=== PATIENT | male | born 1970 | race Asian ===

== ENCOUNTER → 2020-12-20 | Outpatient (CLI) | payer BC | LOC: EDSEX 08:40 → US 08:40 | PROVIDERS: ATTEND Internal Medicine Gastroenterology | DX: R10.84 Generalized abdominal pain (principal); K92.1 Melena | CPT/HCPCS: 76700 ==

== ENCOUNTER → 2021-01-10 | Day surgery (SDC) | payer BC ==
[~2021-01-10] MED LIST: FENTANYL CITRATE/PF 100MCG/2 ML INJ ONE; GLUCAGON FOR INJ 1 MG VIAL ONE; LIDOCAINE HCL 2% LOCAL INJ 5 ML SDV VIAL INJ ONE; MIDAZOLAM HCL 2 MG/2 ML VIAL ONE; PROPOFOL IV EMULSION 10 MG/ML 20 ML VIAL ONE
[2021-01-10 11:15] VITALS: BP 111/77
== END | disposition home or self-care (01) ==
LOC: EDSEX → OR 08:23
PROVIDERS: ATTEND Internal Medicine Gastroenterology
DX: D12.0 Benign neoplasm of cecum (principal); R03.0 Elevated blood-pressure reading, without diagnosis of hypertension; Z68.25 Body mass index [BMI] 25.0-25.9, adult; Z01.810 Encounter for preprocedural cardiovascular examination; Z01.812 Encounter for preprocedural laboratory examination; Z20.822 Contact with and (suspected) exposure to COVID-19
CPT/HCPCS: 45385; 93005; J1610; J2001; J2250; J2704; J3010; U0002; 45378; 45384

== ENCOUNTER → 2025-01-03 | Outpatient (REF) | payer BC | LOC: US 07:47 | PROVIDERS: ATTEND Nurse Practitioner | DX: R10.11 Right upper quadrant pain (principal) | CPT/HCPCS: 76700 ==

== ENCOUNTER → 2025-01-19 | Day surgery (SDC) | payer BC ==
[~2025-01-19] MED LIST changes: -GLUCAGON FOR INJ 1 MG VIAL ONE; +HYOSCYAMINE SULFATE 0.5 MG/ML INJ ONE; -LIDOCAINE HCL 2% LOCAL INJ 5 ML SDV VIAL INJ ONE
[2025-01-19] MEDS: LACTATED RINGER'S 1,000 ML ONE (08:04)
[2025-01-19 10:41] VITALS: TEMP 98.4
[2025-01-19 11:10] VITALS: BP 119/90; PULSE 69; RESP 16; O2SAT 98
== END | disposition home or self-care (01) ==
LOC: OR 07:39
PROVIDERS: ATTEND Internal Medicine Gastroenterology
DX: Z09 Encounter for follow-up examination after completed treatment for conditions other than malignant neoplasm (principal); D12.2 Benign neoplasm of ascending colon; K64.8 Other hemorrhoids; Z01.810 Encounter for preprocedural cardiovascular examination
CPT/HCPCS: 45385; 93005; J1980; J2250; J2704; J3010; J7121; 45378